=== PATIENT | male | born 1950 | race Caucasian/White ===

== ENCOUNTER 2023-09-05 08:05 | Inpatient (IN) | payer OTHER, SELFPAY ==
[2023-09-05] VITALS (24 sets, daily range): BP systolic 96–159; BP diastolic 51–85; PULSE 86–120; RESP 13–40; TEMP 35.9–36.8; O2SAT 92–98; BMI 29.0
--- NOTE | 2023-09-05 08:15 | ED.ABDPAIN ---
HPI - Abdominal Pain General Chief Complaint: Abdominal Pain Stated Complaint: Abd pain x 30 days Time Seen by Provider: 09/05/23 08:09 History of Present Illness HPI narrative: Patient is a 73-year-old male with history of atrial fibrillation but noncompliant with medications he reports he is supposed to be taking metoprolol and amiodarone but has not taken them since March of 2022. He has had ongoing abdominal pain for at least 1 month but worse over the last couple of days. He reports that he is dry heaving. He admits to drinking alcohol daily at least 3 drinks. He is under house arrest for what sounds like a DUI. He is reporting some increasing shortness of breath with exertion he denies any chest pain or palpitations. No specific now. No fevers chills or sweats. Related Data Allergies Allergy/AdvReac Type Severity Reaction Status Date / Time amiodarone Allergy Verified 09/05/23 10:25 metoprolol Allergy Verified 09/05/23 10:25 Patient History Social History household members: none Smoking Status: Current every day smoker Exam Initial Vital Signs Initial Vital Signs: Vital Signs Pulse Rate 112 H 09/05/23 08:10 Respiratory Rate 35 H 09/05/23 08:10 Pulse Oximetry 98 09/05/23 08:10 GENERAL: Disheveled awake alert 73-year-old male and in no acute distress. HEENT: Head atraumatic,EOMI, pupils reactive, face symmetric, moist mucous membranes CARDIOVASCULAR: Regular rate and rhythm without murmurs, rubs or gallops. RESPIRATORY: Breath sounds equal bilaterally, no wheezes rales or rhonchi. ABDOMEN: Soft, nontender. Normoactive bowel sounds all 4 quadrants. No guarding or rebound. : No CVA tenderness EXTREMITIES: Normal range of motion, no clubbing or edema. Neurovascularly intact NEUROLOGICAL: Alert and oriented x4 SKIN: Warm, dry, no laceration, no petechiae, no rashes or lesions. Course Orders Ordered: ED Orders 09/05/23 08:16 CT abdomen pelvis w con Stat XR chest 1V Stat EKG-12 Lead Stat 09/05/23 08:30 Complete Blood Count AUTO DIFF Stat Comprehensive Metabolic Panel Stat ETOH [Ethanol (ETOH)] Stat Lipase Stat NT-proBNP (BNP-Adult 18+) Stat PTT Partial Thromboplastin Shamir Stat Prothrombin Time INR Stat Troponin & CK Cardiac Panel Stat 09/05/23 10:50 Urine Drug Screen, Rapid Stat 09/05/23 11:08 Consult to DRAGLINE MECHANIC - Secondary School Teacher Stat 09/05/23 12:28 CEA [Carcinoembryonic Antigen] Stat Acetaminophen (Acetaminophen 325 Mg Tablet) 650 mg PO Q6H PRN PRN Reason: Fever/Mild Pain (1-3) Clonidine HCl (Clonidine 0.1 Mg Tablet) 0.1 mg PO Q4HR PRN PRN Reason: Alcohol Withdrawal Folic Acid (Folic Acid 1 Mg Tablet) 1 mg PO DAILY [facility] Heparin Sodium (Porcine) (Heparin 5,000 Unit/Ml Vial) 5,000 unit SUBCUT BID ENRIQUE Dextrose/Sodium Chloride (Dextrose 5%-0.9% Ns) 1,000 mls @ 100 mls/hr IV CONT ENRIQUE Lorazepam (Lorazepam 2 Mg/Ml Inj) 0 mg IV CIWAPRN PRN; Protocol PRN Reason: Alcohol Withdrawal Morphine Sulfate (Morphine 4 Mg/Ml Inj) 3 mg IV Q2HR [facility] Multivitamins (Multivitamin 1 Tablet) 1 tab PO DAILY [facility] Naloxone HCl (Naloxone 0.4 Mg/Ml Vial) 0.2 mg IV Q2MIN PRN PRN Reason: Opiate Reversal Nicotine (Nicotine 14 Patch) 14 mg TOP DAILY [facility] Ondansetron HCl (Ondansetron 4 Mg/2 Ml Inj) 4 mg IV Q8HR PRN PRN Reason: Nausea And Vomiting Oxycodone HCl (Oxycodone Ir 5 Mg Tablet) 5 mg PO Q3H PRN PRN Reason: Pain, Moderate (4-6) Oxycodone HCl (Oxycodone Ir 10 Mg Tablet) 10 mg PO Q3H PRN PRN Reason: Pain, Severe (7-10) Sennosides (Sennosides 8.6 Mg Tablet) 17.2 mg PO BEDTIME [facility] Thiamine HCl (Thiamine 100 Mg Tablet) 100 mg PO DAILY [facility] Stop: 09/09/23 09:01 Discontinued Medications Aspirin (Aspirin 81 Mg Chew Tab) 324 mg PO NOW ONE Stop: 09/05/23 08:17 Last Admin: 09/05/23 08:21 Dose: 324 mg Documented By: MPO Furosemide (Furosemide 40 Mg/4 Ml Vial) 20 mg IV NOW ONE Stop: 09/05/23 10:07 Last Admin: 09/05/23 10:25 Dose: 20 mg Documented By: AB Thiamine HCl 100 mg/ Sodium (Chloride) 101 mls @ 404 mls/hr IV NOW ONE Stop: 09/05/23 13:36 Last Admin: 09/05/23 14:35 Dose: 404 mls/hr Documented By: BRIAN Ondansetron HCl (Ondansetron 4 Mg/2 Ml Inj) 4 mg IV NOW ONE Stop: 09/05/23 10:48 Last Admin: 09/05/23 10:51 Dose: 4 mg Documented By: Phenobarbital (Phenobarbital 65 Mg/Ml Vial) 130 mg IV NOW ONE Stop: 09/05/23 12:53 Last Admin: 09/05/23 13:03 Dose: 130 mg Documented By: Vital Signs Vital signs: Vital Signs - 8 hr 09/05/23 08:10 09/05/23 08:12 09/05/23 08:12 Temperature Pulse Rate 112 H 102 H Respiratory Rate 35 H 26 H Blood Pressure 159/80 H Pulse Oximetry 98 97 Oxygen Delivery Method 09/05/23 08:14 09/05/23 08:30 09/05/23 09:00 Temperature 98.3 F Pulse Rate 120 H 109 H 98 H Respiratory Rate 18 22 26 H Blood Pressure 159/80 H Pulse Oximetry 98 97 95 Oxygen Delivery Method Room Air Room Air 09/05/23 09:25 09/05/23 09:25 09/05/23 09:30 Temperature Pulse Rate 95 H Respiratory Rate 20 Blood Pressure 100/69 96/51 L Pulse Oximetry 97 Oxygen Delivery Method 09/05/23 09:30 09/05/23 09:41 09/05/23 09:41 Temperature Pulse Rate 95 H 104 H Respiratory Rate 24 40 H Blood Pressure 109/55 L Pulse Oximetry 95 95 Oxygen Delivery Method 09/05/23 10:00 09/05/23 10:00 09/05/23 10:30 Temperature Pulse Rate 98 H Respiratory Rate 28 H Blood Pressure 111/60 107/69 Pulse Oximetry 95 Oxygen Delivery Method 09/05/23 10:30 09/05/23 11:00 09/05/23 11:00 Temperature Pulse Rate 94 H 100 H Respiratory Rate 29 H 13 Blood Pressure 99/53 L Pulse Oximetry 97 95 Oxygen Delivery Method 09/05/23 11:04 09/05/23 11:04 09/05/23 11:30 Temperature Pulse Rate 102 H 110 H Respiratory Rate 31 H 39 H Blood Pressure 131/77 Pulse Oximetry 97 96 Oxygen Delivery Method 09/05/23 11:31 09/05/23 11:31 09/05/23 12:00 Temperature Pulse Rate 112 H Respiratory Rate 36 H Blood Pressure 131/68 137/85 Pulse Oximetry 96 Oxygen Delivery Method 09/05/23 12:00 09/05/23 12:33 09/05/23 12:41 Temperature Pulse Rate 112 H 116 H Respiratory Rate 31 H 24 Blood Pressure Pulse Oximetry 92 97 Oxygen Delivery Method 09/05/23 12:58 09/05/23 12:58 09/05/23 13:00 Temperature Pulse Rate 117 H Respiratory Rate 25 H Blood Pressure 124/67 123/65 Pulse Oximetry 97 Oxygen Delivery Method 09/05/23 13:00 09/05/23 13:30 09/05/23 13:30 Temperature Pulse Rate 113 H 108 H Respiratory Rate 19 19 Blood Pressure 115/60 Pulse Oximetry 96 95 Oxygen Delivery Method MDM - Abdominal Pain Lab Data 09/05/23 08:30 09/05/23 08:30 Labs: Lab Results 09/05/23 09/05/23 09/05/23 Range/Units 08:30 10:50 12:28 WBC 12.6 H (4.5-11.0) X10^3/uL RBC 4.73 (4.5-5.9) X10^6/uL Hgb 10.0 L (13.5-17.5) g/dL Hct 33.7 L (41-53) % MCV 71.1 L (80-100) fL MCH 21.2 L (26-34) PG MCHC 29.8 L (30-36) % RDW 21.0 H (11.6-14.8) % Plt Count 438 H (150-400) X10^3/uL Neut % (Auto) 71.9 (50-75) % Lymph % (Auto) 16.5 L (25-40) % [place] % (Auto) 8.9 (3-14) % Eos % (Auto) 1.8 L (2-4) % Baso % (Auto) 0.9 (0-2) % Neut # (Auto) 9100 H (1727-7594) /uL Lymph # (Auto) 2100 (2323-0962) /uL [place] # (Auto) 1100 H (0-900) /uL Eos # (Auto) 200 (0-450) /uL Baso # (Auto) 100 (0-100) /uL RBC Morphology See below Hypochromasia 1+ H Anisocytosis 2+ H Microcytosis 1+ H PT 12.4 (9.4-12.5) SECONDS INR 1.1 (0.9-1.3) APTT 28 (25.1-36.5) SECONDS Sodium 135 L (137-145) mmol/L Potassium 4.2 (3.4-5.1) mmol/L Chloride 101 (98-107) mmol/L Carbon Dioxide 21 L (22-32) mmol/L BUN 17 (9-20) mg/dL Creatinine 1.66 H (0.66-1.25) mg/dL Estimated GFR 44 L (>60) mL/min BUN/Creatinine Ratio 10.2 (6-22) Glucose 114 H (80-110) mg/dL Calcium 8.9 (8.4-10.2) mg/dL Total Bilirubin 0.6 (0.2-1.3) mg/dL AST 42 (17-59) IU/L ALT 31 (<50) IU/L Alkaline Phosphatase 111 (38-126) U/L Total Creatine Kinase 107 (55-170) U/L Troponin I 0.014 (0.01-0.034) ng/mL NT-Pro-B Natriuret Pep 1090 H (<125) pg/mL Total Protein 7.0 (6.3-8.2) g/dL Albumin 3.8 (3.5-5.0) g/dL Globulin 3.2 (1.7-4.1) g/dL Albumin/Globulin Ratio 1.2 (1.0-2.8) Lipase 98 (23-300) U/L Carcinoembryonic Ag 35.5 H (0.1-3.0) ng/mL U Opiates 300ng/mL cut Negative (Negative) Ur Oxycodone Screen Negative (Negative) Urine Methadone Screen Negative (Negative) Ur Barbiturates Screen Negative (Negative) U Tricyclic Antidepress Negative (Negative) Ur Phencyclidine Scrn Negative (Negative) Ur Amphetamines Screen Negative (Negative) U Methamphetamines Scrn Positive H (Negative) Ur MDMA Scrn (Ecstasy) Negative (Negative) U Benzodiazepines Scrn Negative (Negative) Urine Cocaine Screen Negative (Negative) U Marijuana (THC) Screen Positive H (Negative) Urine pH Normal (Normal) Urine Specific [place] Normal (Normal) Ethyl Alcohol 54 H ( - 10) mg/dL Ur Creatinine Normal (Normal) Imaging Data CT scan - abdomen/pelvis: Radiologist's Impression: PROCEDURE: CT ABDOMEN PELVIS W CON INDICATIONS: ab pain TECHNIQUE: After the administration of intravenous contrast, axial sections acquired from the lung bases to the pubic symphysis. Coronal and sagittal reformats were performed. For radiation dose reduction, the following was used: automated exposure control, adjustment of mA and/or kV according to patient size. COMPARISON: None. FINDINGS: Image quality: Diagnostic. Lower Chest: Calcification of the coronary vasculature. Small pericardial effusion. ABDOMEN: Liver: No solid mass. Gallbladder: Surgically absent Biliary ducts: No biliary dilation. Pancreas: No ductal dilation. Spleen: Size is within normal limits. Adrenal Glands: No adrenal nodules. Kidneys and Ureters: No hydronephrosis. No solid mass. No complex renal cystic lesion which requires follow up. Stomach and Bowel: Stomach and small bowel are within normal limits. Appendix is normal. There is severe thickening of the mid and distal ascending colon which demonstrates moderate surrounding fat stranding. Remainder of colon is within normal limits. Peritoneum: No abnormal intraperitoneal fluid. No free air. Ventral Wall: No hernia. Abdominal Nodes: 11 mm short axis lymph node within the right superior pelvis. Mildly prominent pericolonic subcentimeter lymph nodes within the right hemiabdomen. Vessels: There is mild ectasia of the infrarenal abdominal aorta measuring roughly 30 mm diameter. IVC is within normal limits. PELVIS: Pelvic Organs: Unremarkable. Bladder: Unremarkable. Pelvic Nodes: No enlarged lymph nodes. Miscellaneous: No inguinal hernias are seen. Bones: No aggressive osseous abnormality. IMPRESSION: 1. 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 Infection inflammation could produce a similar appearance. Further assessment with colonoscopy is recommended. 2. Coronary artery disease. 3. Small pericardial effusion. 4. Aortic ectasia. Dictated by: Patricia Gomez M.D. on 09/05/2023 at 9:26 ECG Data Interpretation: Sinus rhythm rate 114 MA interval 144 QRS 80 QTC 512 MDM Narrative Medical decision making narrative: Patient is 73-year-old male history of noncompliance atrial fibrillation with ongoing abdominal and alcohol abuse. Presenting today by EMS with ongoing abdominal pain. Reports dry heaving unable to drink as much alcohol normal but does not appear to be in acute withdrawal. Blood work reviewed: WBC 12.6 hemoglobin 10.0 hematocrit 33 0.7 MVC 71, platelets 438, sodium 135, potassium 4.2, chloride 101, CO2 21, BUN 17, creatinine 1.6, glucose 114, bilirubin 0.6 AST 42, ALT 1 alk-phos 111 troponin 0.014, BNP 1090 lipase 98 Imaging: CT shows inflammatory carcinoma involving right colon with metastasis recommended colonoscopy, coronary artery disease and small pericardial effusion along with aortic ectasia. Chest x-ray did not show any abnormality Patient overall appears well. He does have some shortness of breath possibly some CHF with an elevated BNP without significant hypoxia or fluid overload. He is given Lasix here in the ED. Records from [facility] have been received and reviewed last visit there was in January of 2022 at that time he was also known to be noncompliant with medications Many [facility] talk [facility] the [facility]. Finally gotten touch with the ED and [facility] they report that he has no primary care provider in his not established there either. Patient is notably having increased heart rate some confusion nursing reports increase in see while. Patient is adamant he does not drink a lot of alcohol although his alcohol level today was 54. He reports that he does drink sometimes to help the shakes in the itching go away. Blood work early consistent with chronic alcohol use but is certainly having some concerns with withdrawal. He likely has some congestive heart failure as well. However he reports he has not eating or drinking maybe dehydrated. Patient has newly diagnosed colon cancer but he reports he does not want any sort of treatment for it. Patient has no evidence of infection With increasing shakiness tachycardia tone confusion increase CIWA concern for alcohol withdrawal. Dr. Landa updated patient's symptoms test results and kindly accepts patient Discharge Plan Departure Patient Disposition: Admitted As Inpatient Clinical Impression: Alcohol use with withdrawal, CHF (congestive heart failure), Colon cancer, Methamphetamine abuse Admit Date/Time: 09/05/23 13:35 Admit Provider: Blaise Landa
--- NOTE | 2023-09-05 08:16 | DI.RAD.S_ITS ---
PROCEDURE: XR CHEST 1V INDICATIONS: short of breath TECHNIQUE: One view of the chest was acquired. COMPARISON: [facility], CR, XR CHEST 1 VIEW, 04/25/2019, 23:20. FINDINGS: Surgical changes and devices: None. Lungs and pleura: Lungs are clear. No pleural effusions or pneumothorax. Mediastinum: Mediastinal contours appear normal. Heart size is normal. Bones and chest wall: No suspicious bony lesions. Overlying soft tissues appear unremarkable. IMPRESSION: No acute cardiopulmonary abnormality is seen. Dictated by: Edson Mosquera M.D. on 09/05/2023 at 8:49 Approved by: Edson Mosquera M.D. on 09/05/2023 at 8:52
[2023-09-05] MEDS: ASPIRIN 81 MG CHEW TAB 324 MG PO (08:21)
[2023-09-05 08:55] LABS: Add Manual Diff / Slide Review NO; Basophils Absolute Auto 100 /uL (0-100); Basophils Percent Auto 0.9 % (0-2); Eosinophils Absolute Auto 200 /uL (0-450); Eosinophils Percent Auto 1.8 % (2-4); Hematocrit 33.7 % (41-53); Lymphocytes Absolute Auto 2100 /uL (1100-4500); Lymphocytes Percent Auto 16.5 % (25-40); Mean Corpuscular HGB Conc 29.8 % (30-36); Mean Corpuscular Hemoglobin 21.2 PG (26-34); Mean Corpuscular Volume 71.1 fL (80-100); Monocytes Absolute Auto 1100 /uL (0-900); Monocytes Percent Auto 8.9 % (3-14); Neutrophils Absolute Auto 9100 /uL (1500-7000); Neutrophils Percent Auto 71.9 % (50-75); Platelet Count 438 X10^3/uL (150-400); Red Blood Cell Count 4.73 X10^6/uL (4.5-5.9); White Blood Cell Count 12.6 X10^3/uL (4.5-11.0)
[2023-09-05 08:57] LABS: INR 1.1 (0.9-1.3); Prothrombin Time 12.4 SECONDS (9.4-12.5)
[2023-09-05 09:00] LABS: PTT Partial Thromboplastin Tim 28 SECONDS (25.1-36.5)
[2023-09-05 09:02] LABS: Alanine Aminotransferase 31 IU/L (<50); Albumin 3.8 g/dL (3.5-5.0); Albumin Globulin Ratio 1.2 (1.0-2.8); Alkaline Phosphatase 111 U/L (38-126); Aspartate Aminotransferase 42 IU/L (17-59); BUN Creatinine Ratio 10.2 (6-22); Bilirubin Total 0.6 mg/dL (0.2-1.3); Blood Urea Nitrogen 17 mg/dL (9-20); Calcium 8.9 mg/dL (8.4-10.2); Carbon Dioxide 21 mmol/L (22-32); Chloride 101 mmol/L (98-107); Creatine Kinase 107 U/L (55-170); Estimated Glomerular Filt Rate 44 mL/min (>60); Globulin 3.2 g/dL (1.7-4.1); Glucose 114 mg/dL (80-110); Lipase 98 U/L (23-300); Potassium 4.2 mmol/L (3.4-5.1); Sodium 135 mmol/L (137-145)
[2023-09-05 09:13] LABS: HEMOLYSIS < 15 (0-50); NT-proBNP (BNP-Adult 18+) 1090 pg/mL (<125)
[2023-09-05 09:14] LABS: Troponin I 0.014 ng/mL (0.01-0.034)
[2023-09-05 09:33] LABS: Anisocytosis 2+; Hypochromasia 1+; Microcytosis 1+
[2023-09-05 10:04] LABS: Ethanol (ETOH) 54 mg/dL
[2023-09-05] MEDS: FUROSEMIDE 40 MG/4 ML VIAL 20 MG IV (10:25)
[2023-09-05] MEDS: ONDANSETRON 4 MG/2 ML INJ IV (10:51)
[2023-09-05 11:15] LABS: UR Morphine/Opiate cutoff 300 Negative (Negative); Ur Creatinine Normal (Normal); Ur Specific Gravity Normal (Normal); Urine Amphetamines Negative (Negative); Urine Barbiturates Negative (Negative); Urine Benzodiazepines Negative (Negative); Urine Cocaine Negative (Negative); Urine MDMA Negative (Negative); Urine Methadone Negative (Negative); Urine Methamphetamines Positive (Negative); Urine Oxycodone Negative (Negative); Urine Phencyclidine Negative (Negative); Urine Tetrahydrocannabinol Positive (Negative); Urine Tricyclic Antidepressant Negative (Negative); Urine pH Normal (Normal)
--- NOTE | 2023-09-05 11:33 | PC.NURSE ---
Pt asking for food and water. Per Dr Parish- verbal order for general diet. given ice water and sandwich.
[2023-09-05] MEDS: PHENobarbital 65 MG/ML VIAL 130 MG IV (13:03)
[2023-09-05 13:07] LABS: Carcinoembryonic Antigen 35.5 ng/mL (0.1-3.0)
--- NOTE | 2023-09-05 13:39 | CM.SWNOTE ---
Initial DCP Assessment/ ED CATERPILLAR TRACTOR OPERATOR Note Patient is 73 y/o male who presents to ED via EMS from [place] due to concern for Afib, SOB, Abd pain and recent ETOH use. It is reported that patient has not been taking rx for the last 1.5 years due to issues with access to [facility] benefits. Patient does not have current PCP, this CATERPILLAR TRACTOR OPERATOR contacted the VA to set that up. Patient has VA and [employer] insurance. CATERPILLAR TRACTOR OPERATOR enters room to meet with patient, patient presents as A/Ox4, unkempt and coherent. Patient endorses he resides on [place] and moved there 5 years ago, patient endorses independence with ADLs, patient states he has a vehicle and drives. Patient endorses access to basic needs. Patient endorses he receives VA benefits because he is a 100% disabled vet. Patient endorses difficulty navigating the [facility] in receiving outpatient care and follow up with prescriptions in the last 1-2 years. Patient endorses ETOH use but denies issue with drinking, it is reported that patient has at least 3 drinks daily. Patient presents with BAL of 54, also positive for THC and Methamphetamine. Patient presents to ED with ankle bracelet electronic monitor and states that he recently got a DUI. Patient is currently experiencing ETOH withdrawals with shakey, SOB, sweats, Nausea and pain. Per RN, patient presents with current CIWA score of 21 Patient states he has several siblings throughout [facility] and one of his sisters visited him a week or so ago. Patient does not have any contacts listed in EMR. Upon presentation to ED patient's CT scans show lois metastases of the right colon, CAD. small Pericardial effusion and aortic ectasia. Patient endorses he is not interested in pursuing chemotherapy but agrees he needs to establish care with a PCP. CATERPILLAR TRACTOR OPERATOR reaches out to [facility] regarding patient, he provides contacts to [place]. CATERPILLAR TRACTOR OPERATOR offers assistance in establishing care with PCP, CATERPILLAR TRACTOR OPERATOR makes several attempts to reach [facility] and eventually reaches [place] through (Ph. # [phone]), it is reported that their team will reach out to patient to set up PCP appt, CATERPILLAR TRACTOR OPERATOR provides ED CATERPILLAR TRACTOR OPERATOR phone number as well for further coordination of care in the case that patient's phone is not in service. CATERPILLAR TRACTOR OPERATOR also calls [place] [facility]ist Cyndy Haywood (ph. # [phone]) and leaves requesting return call regarding patient. Cyndy calls back and states that patient needs to fill out a 10-10 EZ form for VA enrollment to set up with further VA services and to establish care with PCP. CATERPILLAR TRACTOR OPERATOR to provide this with patient. Patient is able to ambulate independently in ED but presents with SOB and pain afterwards. ED provider contacts hospitalist and patient is accepted for for acute care inpatient status due to concern for patient's ETOH withdrawals, and further evaluation and treatment regarding patient's new dx. Plan: patient admitted to Acute Care, DCP to f/u with POC and f/u with [facility] for coordination of care. Patient likely to d/c to home upon medical clearance but will need support with outpatient follow up. ANGEL Nielson Discharge Planning/Care Management CM Discharge Assessment Start: 09/05/23 13:37 Freq: Status: Active Protocol: Document 09/05/23 13:37 LN (Rec: 09/05/23 13:39 LN [id number]) Discharge Planning Assessment Assigned Bed Spring Maker ANGEL Estes Advance Directives? No Advance Directives on File No History Provided By Patient,Medical Record Has Patient been admitted in last 30 No days? Prior Living Arrangements House Household Members none Type of transporation used prior to Drives own vehicle admit Independent with ADL's Yes Is patient alert and oriented? Yes Comment Patient will need assistance with PCP follow up with [facility]. This CATERPILLAR TRACTOR OPERATOR called VA and requested established care with PCP it is reported they will call back patient or this CATERPILLAR TRACTOR OPERATOR. Review Status In Process Please Provide Date Initial DC 09/05/23 Assessment Was Performed
[2023-09-05] MEDS: THIAMINE 100 MG in SODIUM CHLORIDE 0.9% 100 ML 404 MG IV (14:35)
--- NOTE | 2023-09-05 15:12 | P.HP_ITS ---
History of Present Illness History of Present Illness Date Patient Seen: 09/05/23 Time Patient Seen: 15:14 Date of Onset of Symptoms: 08/14/23 Chief complaint: Abd pain x 30 days Narrative: The patient is a 73-year-old male with a history of atrial fibrillation, medication noncompliance, and alcohol use disorder who presents from [place] by medical transport boat for profound weakness. The patient describes of crescendo abdominal pain for the last 4-6 weeks. He has been treating this intermittently with alcohol at home, sometimes drinking a half of a 5th of alcohol a day. He has [place] staying [place] very [place] on [place] and today called for help because he was unable to tolerate the pain and weakness. He does note some dyspnea with exertion. The patient has a left ankle brace on for some type of driving charges. The patient has multiple siblings who live somewhat close and a brother in [place]. The patient was found to have evidence of metastatic cancer of unknown primary with scanning in the emergency department today and took that news with calmness noting that he has done his time. He began to develop symptoms of alcohol withdrawal scoring CIWA scores of 22 in the emergency department. He was given Ativan and phenobarbital. He arrives on the floor with mild diaphoresis but denies any withdrawal symptoms or hallucinations. He has not shaking. His pain has primarily been epigastric. He has had periodic diarrhea. He notes he has no interest in further evaluation for cancer or treatment modalities but rather he would like to be comfortable and preserve his dignity. 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 Skin exam reveals mckinney on the medial aspect of both lower extremities which he notes he sustained by sitting too close to a portable propane here which he uses in his cabin. [facility] Social History household members: none Smoking Status: Current every day smoker Meds Home Medications and Allergies Allergies Allergy/AdvReac Type Severity Reaction Status Date / Time amiodarone Allergy Verified 09/05/23 10:25 metoprolol Allergy Verified 09/05/23 10:25 Review of Systems Review of Systems Narrative: All else reviewed and otherwise unremarkable except as noted in the history and physical. Exam Vital Signs (past 8 hours): - 09/05/23 08:10 09/05/23 08:12 09/05/23 08:12 Temperature Pulse Rate 112 H 102 H Respiratory Rate 35 H 26 H Blood Pressure 159/80 H Pulse Oximetry 98 97 Oxygen Delivery Method 09/05/23 08:14 09/05/23 08:30 09/05/23 09:00 Temperature 98.3 F Pulse Rate 120 H 109 H 98 H Respiratory Rate 18 22 26 H Blood Pressure 159/80 H Pulse Oximetry 98 97 95 Oxygen Delivery Method Room Air Room Air 09/05/23 09:25 09/05/23 09:25 09/05/23 09:30 Temperature Pulse Rate 95 H Respiratory Rate 20 Blood Pressure 100/69 96/51 L Pulse Oximetry 97 Oxygen Delivery Method 09/05/23 09:30 09/05/23 09:41 09/05/23 09:41 Temperature Pulse Rate 95 H 104 H Respiratory Rate 24 40 H Blood Pressure 109/55 L Pulse Oximetry 95 95 Oxygen Delivery Method 09/05/23 10:00 09/05/23 10:00 09/05/23 10:30 Temperature Pulse Rate 98 H Respiratory Rate 28 H Blood Pressure 111/60 107/69 Pulse Oximetry 95 Oxygen Delivery Method 09/05/23 10:30 09/05/23 11:00 09/05/23 11:00 Temperature Pulse Rate 94 H 100 H Respiratory Rate 29 H 13 Blood Pressure 99/53 L Pulse Oximetry 97 95 Oxygen Delivery Method 09/05/23 11:04 09/05/23 11:04 09/05/23 11:30 Temperature Pulse Rate 102 H 110 H Respiratory Rate 31 H 39 H Blood Pressure 131/77 Pulse Oximetry 97 96 Oxygen Delivery Method 09/05/23 11:31 09/05/23 11:31 09/05/23 12:00 Temperature Pulse Rate 112 H Respiratory Rate 36 H Blood Pressure 131/68 137/85 Pulse Oximetry 96 Oxygen Delivery Method 09/05/23 12:00 09/05/23 12:33 09/05/23 12:41 Temperature Pulse Rate 112 H 116 H Respiratory Rate 31 H 24 Blood Pressure Pulse Oximetry 92 97 Oxygen Delivery Method 09/05/23 12:58 09/05/23 12:58 09/05/23 13:00 Temperature Pulse Rate 117 H Respiratory Rate 25 H Blood Pressure 124/67 123/65 Pulse Oximetry 97 Oxygen Delivery Method 09/05/23 13:00 09/05/23 13:30 09/05/23 13:30 Temperature Pulse Rate 113 H 108 H Respiratory Rate 19 19 Blood Pressure 115/60 Pulse Oximetry 96 95 Oxygen Delivery Method 09/05/23 14:00 09/05/23 14:00 Temperature Pulse Rate 105 H Respiratory Rate 20 Blood Pressure 113/65 Pulse Oximetry 94 Oxygen Delivery Method Oxygen Delivery Method Room Air Narrative Exam Narrative: NAD, alert and oriented x3, fluent speech. Somewhat disheveled in appearance. Obese. Head is atraumatic, pupils are symmetric, anicteric sclera, EOMI, conjugate gaze. Nose and oropharynx unremarkable. No facial droop. He has a moon. Neck is supple and free of adenopathy. Lungs are clear, normal rate and effort. Heart is regular, no murmur Abdomen soft , NT. No masses. No leg edema. Good pedal pulses. Superficial mckinney medical aspects of both lower legs Normal joints Moves arms and legs. No slurring. Objective ECG Impression: Interpretation: Sinus rhythm rate 114 MI interval 144 QRS 80 QTC 512 Imaging Chest x-ray: Radiologist's impression: IMPRESSION: No acute cardiopulmonary abnormality is seen. CT scan - abdomen: Radiologist's impression: IMPRESSION: 1. 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 Infection inflammation could produce a similar appearance. Further assessment with colonoscopy is recommended. 2. Coronary artery disease. 3. Small pericardial effusion. 4. Aortic ectasia. Labs 09/05/23 08:30 09/05/23 08:30 Labs: Laboratory Results - last 24 hr 09/05/23 09/05/23 09/05/23 08:30 10:50 12:28 WBC 12.6 H RBC 4.73 Hgb 10.0 L Hct 33.7 L MCV 71.1 L MCH 21.2 L MCHC 29.8 L RDW 21.0 H Plt Count 438 H Neut % (Auto) 71.9 Lymph % (Auto) 16.5 L [place] % (Auto) 8.9 Eos % (Auto) 1.8 L Baso % (Auto) 0.9 Neut # (Auto) 9100 H Lymph # (Auto) 2100 [place] # (Auto) 1100 H Eos # (Auto) 200 Baso # (Auto) 100 RBC Morphology See below Hypochromasia 1+ H Anisocytosis 2+ H Microcytosis 1+ H PT 12.4 INR 1.1 APTT 28 Sodium 135 L Potassium 4.2 Chloride 101 Carbon Dioxide 21 L BUN 17 Creatinine 1.66 H Estimated GFR 44 L BUN/Creatinine Ratio 10.2 Glucose 114 H Calcium 8.9 Total Bilirubin 0.6 AST 42 ALT 31 Alkaline Phosphatase 111 Total Creatine Kinase 107 Troponin I 0.014 NT-Pro-B Natriuret Pep 1090 H Total Protein 7.0 Albumin 3.8 Globulin 3.2 Albumin/Globulin Ratio 1.2 Lipase 98 Carcinoembryonic Ag 35.5 H U Opiates 300ng/mL cut Negative Ur Oxycodone Screen Negative Urine Methadone Screen Negative Ur Barbiturates Screen Negative U Tricyclic Antidepress Negative Ur Phencyclidine Scrn Negative Ur Amphetamines Screen Negative U Methamphetamines Scrn Positive H Ur MDMA Scrn (Ecstasy) Negative U Benzodiazepines Scrn Negative Urine Cocaine Screen Negative U Marijuana (THC) Screen Positive H Urine pH Normal Urine Specific [place] Normal Ethyl Alcohol 54 H Ur Creatinine Normal Assessment & Plan Assessment & Plan narrative: 1. Alcohol withdrawal, new and active. 2. Probable metastatic colon cancer, present on admission and active. Plan: -IV fluids -pain medications as needed -CIWA protocol, we will introduce a Librium taper within the next day. -discharge planning which may include hospice at an institution. DNR Time Spent With Patient Time with patient: 30 to 49 minutes with 50% spent counseling/coordinating care Quality MIPS - Admit I confirm the patient?s Advance Care Plan is present, Code status is documented, Surrogate decision maker is in patient?s record [If Yes, STOP here]: Yes
[2023-09-05] MEDS: MORPHINE 4 MG/ML INJ 3 MG IV (15:42)
[2023-09-05] MEDS: DEXTROSE 5%-0.9% NS 1,000 ML 100 ML IV (15:46)
[2023-09-05] MEDS: cloNIDine 0.1 MG TABLET PO (18:08)
[2023-09-05] MEDS: LORazepam 2 MG/ML INJ IV (18:16)
[2023-09-05] MEDS: SENNOSIDES 8.6 MG TABLET 17.2 MG PO (21:24)
[2023-09-05] MEDS: HEPARIN 5,000 UNIT/ML VIAL 5000 UNIT SUBCUT (21:24)
[2023-09-06 00:14] VITALS: BP 102/54; PULSE 70; RESP 18; TEMP 36.4; O2SAT 96
[2023-09-06] MEDS: LORazepam 2 MG/ML INJ IV (01:16)
[2023-09-06] MEDS: DEXTROSE 5%-0.9% NS 1,000 ML 100 ML IV (02:13)
[2023-09-06 04:59] VITALS: BP 134/76; PULSE 96; RESP 16; TEMP 36.6; O2SAT 95
[2023-09-06 05:05] LABS: Add Manual Diff / Slide Review NO; Basophils Absolute Auto 100 /uL (0-100); Basophils Percent Auto 0.6 % (0-2); Eosinophils Absolute Auto 500 /uL (0-450); HEMOLYSIS < 15 (0-50); Hematocrit 29.1 % (41-53); Hemoglobin 8.9 g/dL (13.5-17.5); Lymphocytes Absolute Auto 1700 /uL (1100-4500); Lymphocytes Percent Auto 15.8 % (25-40); Mean Corpuscular HGB Conc 30.6 % (30-36); Mean Corpuscular Hemoglobin 21.8 PG (26-34); Mean Corpuscular Volume 71.1 fL (80-100); Monocytes Absolute Auto 800 /uL (0-900); Monocytes Percent Auto 7.2 % (3-14); Neutrophils Absolute Auto 7700 /uL (1500-7000); Neutrophils Percent Auto 71.4 % (50-75); Platelet Count 355 X10^3/uL (150-400); Red Cell Distribution Width 20.5 % (11.6-14.8); Sodium 132 mmol/L (137-145); White Blood Cell Count 10.7 X10^3/uL (4.5-11.0)
[2023-09-06 05:08] LABS: Alanine Aminotransferase 25 IU/L (<50); Alkaline Phosphatase 99 U/L (38-126); Aspartate Aminotransferase 27 IU/L (17-59); BUN Creatinine Ratio 16.3 (6-22); Bilirubin Total 0.7 mg/dL (0.2-1.3); Blood Urea Nitrogen 20 mg/dL (9-20); Carbon Dioxide 23 mmol/L (22-32); Chloride 103 mmol/L (98-107); Estimated Glomerular Filt Rate > 60 mL/min (>60); Globulin 2.9 g/dL (1.7-4.1); Glucose 111 mg/dL (80-110); Total Protein 5.9 g/dL (6.3-8.2)
[2023-09-06 05:36] LABS: Anisocytosis 2+; Hypochromasia 1+; Microcytosis 1+; Polychromasia 1+
--- NOTE | 2023-09-06 06:45 | PC.NURSE ---
Last CIWA assessment was done @ 0107, medicated him with 1 mg. of Lorazepam IVP. Every time I checked him, he's snoring lightly. Will monitor & cont. POC.
[2023-09-06 08:00] VITALS: BP 134/75; PULSE 83; RESP 18; TEMP 36.4; O2SAT 96
--- NOTE | 2023-09-06 08:57 | P.PN_ITS ---
Subjective Subjective Interval history: Doing well, no dyspnea. He denies any hallucinations,agitation or anxiety. No nausea. He confirms DNR. He also confirms a desire to continue to reside on [place]. He has no interest in further workup of his cancer or potential treatment. Exam Vital Signs (past 8 hours): - 09/06/23 04:59 09/06/23 08:00 Temperature 97.9 F 97.6 F Pulse Rate 96 H 83 Respiratory Rate 16 18 Blood Pressure 134/76 134/75 Pulse Oximetry 95 96 Oxygen Flow Rate 0 Oxygen Delivery Method Room Air Oxygen Flow Rate 0 Narrative Exam Narrative: NAD, fluent speech. Normal affect. Lungs are clear, normal rate and effort. Heart is regular, no murmur. Abdomen is soft, nontender. Extremities are free of edema. Poor hygiene regarding feet. Superficial [place] medial aspects of both lower extremities. Objective Labs 09/06/23 04:20 09/06/23 04:20 Labs: Laboratory Results - last 24 hr 09/05/23 09/05/23 09/05/23 08:30 10:50 12:28 WBC 12.6 H RBC 4.73 Hgb 10.0 L Hct 33.7 L MCV 71.1 L MCH 21.2 L MCHC 29.8 L RDW 21.0 H Plt Count 438 H Neut % (Auto) 71.9 Lymph % (Auto) 16.5 L [place] % (Auto) 8.9 Eos % (Auto) 1.8 L Baso % (Auto) 0.9 Neut # (Auto) 9100 H Lymph # (Auto) 2100 [place] # (Auto) 1100 H Eos # (Auto) 200 Baso # (Auto) 100 RBC Morphology See below Polychromasia Hypochromasia 1+ H Anisocytosis 2+ H Microcytosis 1+ H PT 12.4 INR 1.1 APTT 28 Sodium 135 L Potassium 4.2 Chloride 101 Carbon Dioxide 21 L BUN 17 Creatinine 1.66 H Estimated GFR 44 L BUN/Creatinine Ratio 10.2 Glucose 114 H Calcium 8.9 Total Bilirubin 0.6 AST 42 ALT 31 Alkaline Phosphatase 111 Total Creatine Kinase 107 Troponin I 0.014 NT-Pro-B Natriuret Pep 1090 H Total Protein 7.0 Albumin 3.8 Globulin 3.2 Albumin/Globulin Ratio 1.2 Lipase 98 Carcinoembryonic Ag 35.5 H U Opiates 300ng/mL cut Negative Ur Oxycodone Screen Negative Urine Methadone Screen Negative Ur Barbiturates Screen Negative U Tricyclic Antidepress Negative Ur Phencyclidine Scrn Negative Ur Amphetamines Screen Negative U Methamphetamines Scrn Positive H Ur MDMA Scrn (Ecstasy) Negative U Benzodiazepines Scrn Negative Urine Cocaine Screen Negative U Marijuana (THC) Screen Positive H Urine pH Normal Urine Specific [place] Normal Ethyl Alcohol 54 H Ur Creatinine Normal 09/06/23 04:20 WBC 10.7 RBC 4.10 L Hgb 8.9 L Hct 29.1 L MCV 71.1 L MCH 21.8 L MCHC 30.6 RDW 20.5 H Plt Count 355 Neut % (Auto) 71.4 Lymph % (Auto) 15.8 L [place] % (Auto) 7.2 Eos % (Auto) 5.0 H Baso % (Auto) 0.6 Neut # (Auto) 7700 H Lymph # (Auto) 1700 [place] # (Auto) 800 Eos # (Auto) 500 H Baso # (Auto) 100 RBC Morphology See below Polychromasia 1+ H Hypochromasia 1+ H Anisocytosis 2+ H Microcytosis 1+ H PT INR APTT Sodium 132 L Potassium 4.0 Chloride 103 Carbon Dioxide 23 BUN 20 Creatinine 1.23 Estimated GFR > 60 BUN/Creatinine Ratio 16.3 Glucose 111 H Calcium 8.0 L Total Bilirubin 0.7 AST 27 ALT 25 Alkaline Phosphatase 99 Total Creatine Kinase Troponin I NT-Pro-B Natriuret Pep Total Protein 5.9 L Albumin 3.0 L Globulin 2.9 Albumin/Globulin Ratio 1.0 Lipase Carcinoembryonic Ag U Opiates 300ng/mL cut Ur Oxycodone Screen Urine Methadone Screen Ur Barbiturates Screen U Tricyclic Antidepress Ur Phencyclidine Scrn Ur Amphetamines Screen U Methamphetamines Scrn Ur MDMA Scrn (Ecstasy) U Benzodiazepines Scrn Urine Cocaine Screen U Marijuana (THC) Screen Urine pH Urine Specific [place] Ethyl Alcohol Ur Creatinine PFSH Social History household members: none Smoking Status: Current every day smoker alcohol intake: current Assessment & Plan Assessment & Plan narrative: 1. Alcohol withdrawal, new and improved. 2. Probable metastatic colon cancer, present on admission and active. 3. Mild anemia, present on admission and active. 4. Mild hyponatremia, present on admission and active. 5. Superficial mckinney medial aspect of both legs, present on admission and active. Plan: -discontinue IV fluids -discussed with social work, [facility] will [facility] and look at options for discharge potentially with hospice and other support. -discontinue CIWA protocol, and start Librium taper with p.o. q.6 hours PRN Ativan for anxiety. -discharge planning which may include hospice at an institution. -out of bed, physical therapy evaluation. DNR Quality VTE Deep Vein Thrombosis/Pulmonary Embolism Present on Admission: Yes
[2023-09-06] MEDS: THIAMINE 100 MG TABLET PO (09:00)
[2023-09-06] MEDS: FOLIC ACID 1 MG TABLET PO (09:00)
[2023-09-06] MEDS: HEPARIN 5,000 UNIT/ML VIAL 5000 UNIT SUBCUT ×2 (09:01→20:06)
[2023-09-06] MEDS: MULTIVITAMIN 1 TABLET 1 TAB PO (09:01)
[2023-09-06] MEDS: NICOTINE 14 PATCH 14 MG TOP (09:01)
[2023-09-06] MEDS: chlordiazePOXIDE 10 MG CAPSULE PO ×3 (09:18→20:06)
--- NOTE | 2023-09-06 09:58 | PT.IIE ---
Current Diagnoses Alcohol dependence with withdrawal, unspecified (09/05/23) Physical Therapy Inpatient Evaluation/Re-Eval M1 PT/OT-IP Prior Functional Status Start: 09/06/23 13:02 Freq: NEEDED Status: Active Protocol: Document 09/06/23 09:58 AB (Rec: 09/06/23 13:39 AB [id number]) Medical Review Prior Functional Status Medical History Reviewed Yes Communication able to make needs known Mobility and Gait pt stated that he was independent with all mobilities and ambulation without AD Social History Household Members none Living Arrangements House Number of Floors (Floors) One Floor Number of Stairs To Enter/Railing? no steps to enter Home Environment Standard Height Toilet,Tub/ Shower Home Equipment Shower Seat without Backrest, Grab Bars In Shower M2 PT-IP Current Condition Start: 09/06/23 13:02 Freq: NEEDED Status: Active Protocol: Document 09/06/23 09:58 AB (Rec: 09/06/23 13:39 AB [id number]) Physical Therapy Current Condition Current Condition Evaluation Date 09/06/23 Treatment Diagnosis colon CA; CHF; difficulty in walking Onset Date 09/05/23 M3 PT-IP Subjective Start: 09/06/23 13:02 Freq: NEEDED Status: Active Protocol: Document 09/06/23 09:58 AB (Rec: 09/06/23 13:39 AB [id number]) Subjective Physical Therapy Visit Type Type Initial Evaluation Visit Start Time 09:58 Visit Stop Time 10:20 Number of DIE PRESSER Visits 0 Physical Therapy Visit Comments Patient Comments agreeable to do PT Therapy Pain Assessment Pain When Pain Assessed At Rest Pain Present Pain Present Pain Reported Location abdomen Intensity 4 Scale Used Numeric (0 - 10) Pain Management Techniques Distraction,Modification of Treatment M4 PT-IP Mobility and Gait Start: 09/06/23 13:02 Freq: NEEDED Status: Active Protocol: Document 09/06/23 09:58 AB (Rec: 09/06/23 13:39 AB [id number]) PT-Bed Mobility Assessment Supine to Sit Supine to Sit Independent Sit to Supine Sit to Supine Independent PT-Transfer Assessment Sit to and From Stand Sit to and from Stand Standby Assistance,1 Person Assistance,Use of Upper Extremities Equipment Transfer Assistive Device None,Gait Belt Orthotic/Prosthetic Devices or Brace: No Transfers Transfer Destination Chair Transfer Technique ambulated Transfer Ability Level of Assist Standby Assistance,1 Person Assistance,Use of Upper Extremities Comments Mobility Comments pt supine in bed and agreeable to do PT. obtained PLOF and home set up. BP: 126/74. O2 sat: 96% OH: 80-94.(pt with afib). completed supine to sit independent. completed sit to stand SBA and ambulated in room ~ 35 ft without AD SBA. presents with antalgic gait but without LOB. c/o feeling tired and sat on the chair. agreed to sit up on the chair. call light and table placed within reach. pt can be impulsive and repeated indicated that he wants to smoke. Gait Assessment Gait Gait Assistance Required: Standby Assistance,1 Person Assist Distance (Feet) 35 Able to Maintain Weight Bearing Status No During Gait Assistive Devices Assistive Device None,Gait Belt Orthotic/Prosthetic Devices or Brace: No Factors Limiting Gait Function Factors Limiting Gait Function Decreased Activity Tolerance, Pain,Poor Safety Awareness PT-Balance Assessment Sitting Balance and Reactions Static Sitting Balance Ability Normal Dynamic Sitting Balance Ability Normal Standing Balance and Reactions Static Standing Balance Ability Good Dynamic Standing Balance Ability Good Device Used without AD M5 PT-IP Objective Assessments Start: 09/06/23 13:02 Freq: NEEDED Status: Active Protocol: Document 09/06/23 09:58 AB (Rec: 09/06/23 13:39 AB [id number]) Orientation Orientation/Cognition Level of Alertness Alert Orientation Name Safety Awareness Decreased Safety Awareness Memory Description No Deficits Noted Gross Range of Motion Lower Extremity ROM Assessment Within Functional Limits Strength Lower Extremity Strength Assessment Within Functional Limits Muscle Tone Muscle Tone WNL Yes M7 PT-IP Assessment and Plan Start: 09/06/23 13:02 Freq: NEEDED Status: Active Protocol: Document 09/06/23 09:58 AB (Rec: 09/06/23 13:39 AB [id number]) PT Summary Assessment and Plan Potential Rehabilitation Potential Fair Status of Condition at Evaluation Evolving Summary Impairments Pain,ROM,Strength,Balance, Coordination,Sensation,Tone, Cognition,Bed Mobility, Transfers,Gait,Activity Tolerance Assessment Summary pt is a 73 y/o M who presented to the ED with c/o abdominal pain. pt found to have colon CA with mets. per EMR, pt refuses intervention for his CA and wants to just be comfortable. PT eval completed and pt requiring SBA for mobility without AD and SBA provided only for safety as pt can be impulsive. pt main issue is decrease actvity tolerance which can be accounted for his medical conditions ( a-fib, CHF, colon CA) and also lifestyle issues ( smoker and alcohol use) but pt at this time does not wish for medical interventions for his CA. No further PT intervention indicated at this time and pt to mobilize as much as possible with nursing staff. Frequency of Treatment Frequency Of Treatment Discharge Recommendations To Nursing Amount of Assist Needed Standby Assistance Discharge Recommendations PT Discharge Recommendations Home with Assistance Transportation Needs at Discharge Private Vehicle
[2023-09-06] MEDS: NICOTINE 21 MG PATCH TOP (11:08)
--- NOTE | 2023-09-06 14:05 | CM.DPC ---
DCP Cont. Reviewed EMR and team rounds for status updates. PT has signed off, recommends activity modification, no further PT needs. Will need [facility] [place] on . Will discuss d/c needs further in regard to cg/family availability for support, and hospice referral.
[2023-09-06 17:44] VITALS: BP 140/77; PULSE 101; RESP 18; TEMP 36.8; O2SAT 96
[2023-09-06] MEDS: LORazepam 1 MG TABLET PO (18:49)
[2023-09-06 20:00] VITALS: BP 127/72; PULSE 91; RESP 19; TEMP 35.9; O2SAT 94
[2023-09-06] MEDS: SENNOSIDES 8.6 MG TABLET 17.2 MG PO (20:07)
[2023-09-07] MEDS: LORazepam 1 MG TABLET PO (01:06)
[2023-09-07 04:54] LABS: Add Manual Diff / Slide Review NO; Basophils Absolute Auto 0 /uL (0-100); Basophils Percent Auto 0.4 % (0-2); Eosinophils Absolute Auto 500 /uL (0-450); Eosinophils Percent Auto 4.9 % (2-4); Hematocrit 26.7 % (41-53); Hemoglobin 8.2 g/dL (13.5-17.5); Lymphocytes Absolute Auto 1800 /uL (1100-4500); Lymphocytes Percent Auto 17.2 % (25-40); Mean Corpuscular HGB Conc 30.8 % (30-36); Mean Corpuscular Hemoglobin 22.1 PG (26-34); Mean Corpuscular Volume 71.7 fL (80-100); Monocytes Absolute Auto 700 /uL (0-900); Monocytes Percent Auto 7.3 % (3-14); Neutrophils Absolute Auto 7200 /uL (1500-7000); Neutrophils Percent Auto 70.2 % (50-75); Platelet Count 303 X10^3/uL (150-400); Red Blood Cell Count 3.72 X10^6/uL (4.5-5.9); Red Cell Distribution Width 20.6 % (11.6-14.8); White Blood Cell Count 10.2 X10^3/uL (4.5-11.0)
[2023-09-07 04:55] LABS: Alanine Aminotransferase 21 IU/L (<50); Albumin Globulin Ratio 1.1 (1.0-2.8); Alkaline Phosphatase 88 U/L (38-126); Aspartate Aminotransferase 22 IU/L (17-59); BUN Creatinine Ratio 17.3 (6-22); Bilirubin Total 0.5 mg/dL (0.2-1.3); Blood Urea Nitrogen 19 mg/dL (9-20); Carbon Dioxide 24 mmol/L (22-32); Chloride 103 mmol/L (98-107); Estimated Glomerular Filt Rate > 60 mL/min (>60); Globulin 2.7 g/dL (1.7-4.1); Glucose 104 mg/dL (80-110); HEMOLYSIS < 15 (0-50); Sodium 132 mmol/L (137-145); Total Protein 5.7 g/dL (6.3-8.2)
[2023-09-07 06:18] LABS: Anisocytosis 1+; Hypochromasia 1+; Microcytosis 1+
[2023-09-07 07:00] VITALS: BP 124/61; PULSE 91; RESP 18; TEMP 36.4
[2023-09-07] MEDS: HEPARIN 5,000 UNIT/ML VIAL 5000 UNIT SUBCUT (08:20)
[2023-09-07] MEDS: MULTIVITAMIN 1 TABLET 1 TAB PO (08:20)
[2023-09-07] MEDS: chlordiazePOXIDE 10 MG CAPSULE PO (08:20)
[2023-09-07] MEDS: FOLIC ACID 1 MG TABLET PO (08:20)
[2023-09-07] MEDS: THIAMINE 100 MG TABLET PO (08:20)
[2023-09-07] MEDS: NICOTINE 21 MG PATCH TOP (08:21)
--- NOTE | 2023-09-07 11:21 | PM.DS.1 ---
History of Present Illness History of Present Illness Date Patient Seen: 09/07/23 Time Patient Seen: 11:21 Date of Onset of Symptoms: 08/14/23 Chief complaint: Abd pain x 30 days Narrative: Per admitting provider, The patient is a 73-year-old male with a history of atrial fibrillation, medication noncompliance, and alcohol use disorder who presents from [place] by medical transport boat for profound weakness. The patient describes of crescendo abdominal pain for the last 4-6 weeks. He has been treating this intermittently with alcohol at home, sometimes drinking a half of a 5th of alcohol a day. He has been staying in a very primitive cottage on [place] and today called for help because he was unable to tolerate the pain and weakness. He does note some dyspnea with exertion. The patient has a left ankle brace on for some type of driving charges. The patient has multiple siblings who live somewhat close and a brother in [place]. The patient was found to have evidence of metastatic cancer of unknown primary with scanning in the emergency department today and took that news with calmness noting that he has done his time. He began to develop symptoms of alcohol withdrawal scoring CIWA scores of 22 in the emergency department. He was given Ativan and phenobarbital. He arrives on the floor with mild diaphoresis but denies any withdrawal symptoms or hallucinations. He has not shaking. His pain has primarily been epigastric. He has had periodic diarrhea. He notes he has no interest in further evaluation for cancer or treatment modalities but rather he would like to be comfortable and preserve his dignity. 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 Skin exam reveals mckinney on the medial aspect of both lower extremities which he notes he sustained by sitting too close to a portable propane here which he uses in his cabin. Discharge Providers Provider Date of admission: 09/05/23 13:35 Discharge Date: 09/07/23 Consults: 09/05/23 11:08 Consult to HEADER UP - [employer] [employer]man Stat Comment: new cancer needs follow up 09/05/23 15:06 Consult to Physical Therapy Evaluate & Treat Comment: Physician Instructions: Evaluate and Treat Discharge provider: Neil Mazariegos DO Summary Hospital Course Discharge Diagnosis: 1. Alcohol withdrawal, new and improved. 2. Probable metastatic colon cancer, present on admission and active. 3. Mild anemia, present on admission and active. 4. Mild hyponatremia, present on admission and active. 5. Superficial mckinney medial aspect of both legs, present on admission and active. Hospital Course: This is a 73 year old male who was admitted with alcohol withdrawal. As a result of his evaluation initially he was found to have metastatic cancer of unknown origin but likely colon. CEA level was elevated. Patient desired no further workup after discussion. His alcohol withdrawal was managed with small doses of librium, and at the time of discharge he had no evidence of ongoing withdrawal. He was discharged with supplements and he requested hydroxyzine to help with sleep. Social work was consulted, and patient plans to follow up with his [facility] resources after discharge. He was referred to hospice given no desire to workup or treat probable metastatic colon cancer. Time Spent with Patient Time spent: Greater than 30 minutes Exam Vital Signs (past 8 hours): - 09/07/23 07:00 Temperature 97.6 F Pulse Rate 91 H Respiratory Rate 18 Blood Pressure 124/61 Oxygen Flow Rate 97 Oxygen Delivery Method Room Air Oxygen Flow Rate 97 Narrative Exam Narrative: NAD, fluent speech. Normal affect. Lungs are clear, normal rate and effort. Heart is regular, no murmur. Abdomen is soft, nontender. Extremities are free of edema. Objective Labs 09/07/23 03:55 09/07/23 03:55 Labs: Laboratory Results - last 24 hr 09/07/23 03:55 WBC 10.2 RBC 3.72 L Hgb 8.2 L Hct 26.7 L MCV 71.7 L MCH 22.1 L MCHC 30.8 RDW 20.6 H Plt Count 303 Neut % (Auto) 70.2 Lymph % (Auto) 17.2 L [place] % (Auto) 7.3 Eos % (Auto) 4.9 H Baso % (Auto) 0.4 Neut # (Auto) 7200 H Lymph # (Auto) 1800 [place] # (Auto) 700 Eos # (Auto) 500 H Baso # (Auto) 0 RBC Morphology See below Hypochromasia 1+ H Anisocytosis 1+ H Microcytosis 1+ H Sodium 132 L Potassium 4.0 Chloride 103 Carbon Dioxide 24 BUN 19 Creatinine 1.10 Estimated GFR > 60 BUN/Creatinine Ratio 17.3 Glucose 104 Calcium 8.0 L Total Bilirubin 0.5 AST 22 ALT 21 Alkaline Phosphatase 88 Total Protein 5.7 L Albumin 3.0 L Globulin 2.7 Albumin/Globulin Ratio 1.1 [facility] Social History household members: none Smoking Status: Current every day smoker alcohol intake: current Discharge Plan Discharge Plan Patient Disposition: Home Provider Discharge Comment: You were admitted to the hospital with alcohol withdrawal. This improved with supportive care. You were also found to have likely metastatic colon cancer and did not want to obtain any additional evaluation. Discharge orders & Medications Prescriptions: New folic acid 1 mg Tablet 1 mg PO DAILY 30 Days Qty: 30 0RF thiamine mononitrate (vit B1) 100 mg Tablet 100 mg PO DAILY 30 Days Qty: 30 0RF multivitamin with folic acid [Tab-A-Regine] 400 mcg Tablet 1 tab PO DAILY 30 Days Qty: 30 0RF hydroxyzine HCl 25 mg tablet 25 mg PO BEDTIME PRN (Reason: insomnia) 30 Days Qty: 30 0RF Diet/Activity/Treatments Diet: Diet as Tolerated and Regular Activity: As tolerated, no restrictions. Visit Report/Discharge Packet Instructions: Alcohol and Stress: There are Safer Ways to [place] Stand Alone Forms: Patient Portal/API, Stroke Signs & Symptoms Quality VTE Deep Vein Thrombosis/Pulmonary Embolism Present on Admission: Yes
--- NOTE | 2023-09-07 12:52 | CM.DPC ---
DCP Discharge Home Per MD, pt remains medically stable to d/c home today with outpt f/u and Hospice referral. Per PT, pt an independent ambulator and no PT needs at this time. Rashid, Insurance Follow Up Rep/Spiritual Care provided support to pt bedside this AM. TERRI met bedside with pt and explained role and he confirms he has lived on [place] for many years and his family has lived there for at least 4 generations. Pt has supportive cousins and family that he sees that also live on [place]. Pt confirms that his preference is to d/c home to [place] and not seek any tx for his new CA with mets dx. Pt states he is agreeable to [facility] referral for need of Hospice in the near future. TERRI made referral to [facility] and confirmed with Arabella they received the referral and SW provided pt's Medicare A information as well. TERRI faxed d/c summary to [facility] to review. TERRI provided the [facility] enrollment 10-10EZ form that [facility] Cyndy Haywood provided and pt was able to complete and SW called VA and determined a fax number to send pt's enrollment forms to and [place] recommends pt call them in about 5 days for determination that he qualifies for their enrollment program for coverage and likely additional support in home for Hospice care. ALTON Londono scanned enrollment application into EMR and TERRI provided original back to pt and updated and he remains appreciative. Pt confirms his living situation is less than ideal for when I will need Hospice as he lives in a cabin with minimal heat or space but pt has succeeded in living in this situation. Pt states that he has plenty of money to pay for rent, there is just such a lack of rental options on [place]. Pt states he has spoken to his friend who owns [employer] (resort/motel on [place]) and there are plenty of open and available rooms since its the off-season for tourists and pt can afford to stay there and plans to stay at the [facility] for the time being. Pt states he is comfortable taking [employer] to [place] the [id number] ferry back to [place] and has a friend to provide transport once on [place]. Pt denies any further needs at this time as he currently has no pain, is independently able to ambulate, has family on [place] and is willing to continue working to get better [place] in [place]. and RN updated. RN assisted in getting [facility] i scheduled [facility] and pt about to get in the shower and shave now before returning home. RACH Watson
== END 2023-09-07 13:54 | disposition home or self-care (01) | DRG 897 ==
LOC: ED 10:21 → AC 13:37
PROVIDERS: Admitting Provider Hospitalist; Emergency Provider Emergency Medicine; Referring Provider Emergency Medicine; Visit Provider Hospitalist
DX: F10.239 Alcohol dependence with withdrawal, unspecified (principal); C18.9 Malignant neoplasm of colon, unspecified; C79.9 Secondary malignant neoplasm of unspecified site; I50.9 Heart failure, unspecified; F15.10 Other stimulant abuse, uncomplicated; Y90.2 Blood alcohol level of 40-59 mg/100 ml; Z66 Do not resuscitate
CPT/HCPCS: 36415; 71045; 74177; 80053; 80305; 80320; 82378; 82550; 83690; 83880; 84484; 85025; 85610; 85730; 93005; 96374; 96375; 97162; 99284; J1644; J1940; J2060; J2270; J2405; J2560; Q9967

== ENCOUNTER 2024-04-16 12:55 | Emergency (ER) | payer OTHER, SELFPAY ==
[2023-09-05 15:03] VITALS: BMI 29.0
[2024-04-16] VITALS (13 sets, daily range): BP systolic 123–164; BP diastolic 69–100; PULSE 84–97; RESP 13–22; TEMP 36.5; O2SAT 94–99; BMI 27.3
--- NOTE | 2024-04-16 13:05 | DI.RAD.S_ITS ---
PROCEDURE: XR CHEST 1V INDICATIONS: Shortness of breath TECHNIQUE: One view of the chest was acquired. COMPARISON: [facility], CR, XR CHEST 1V, 09/05/2023, 8:22. FINDINGS: Surgical changes and devices: None. Lungs and pleura: Lungs are clear. No pleural effusions or pneumothorax. Mediastinum: Mediastinal contours appear normal. Heart size is normal. Bones and chest wall: No suspicious bony lesions. Overlying soft tissues appear unremarkable. IMPRESSION: No acute cardiopulmonary abnormality is seen. Dictated by: Amadeo Barron M.D. on 04/16/2024 at 13:40 Approved by: Amadeo Barron M.D. on 04/16/2024 at 13:41
--- NOTE | 2024-04-16 13:14 | EKG_ITS ---
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
[2024-04-16 14:14] LABS: Add Manual Diff / Slide Review NO; Basophils Absolute Auto 0 /uL (0-100); Basophils Percent Auto 0.5 % (0-2); Eosinophils Absolute Auto 400 /uL (0-450); Eosinophils Percent Auto 7.7 % (2-4); Hematocrit 34.2 % (41-53); Hemoglobin 11.2 g/dL (13.5-17.5); Lymphocytes Absolute Auto 1200 /uL (1100-4500); Mean Corpuscular HGB Conc 32.8 % (30-36); Mean Corpuscular Hemoglobin 31.2 PG (26-34); Mean Corpuscular Volume 95.1 fL (80-100); Monocytes Absolute Auto 600 /uL (0-900); Monocytes Percent Auto 9.8 % (3-14); Neutrophils Absolute Auto 3600 /uL (1500-7000); Platelet Count 204 X10^3/uL (150-400); Red Cell Distribution Width 26.4 % (11.6-14.8); White Blood Cell Count 5.9 X10^3/uL (4.5-11.0)
[2024-04-16 14:16] LABS: INR 1.1 (0.9-1.3); Prothrombin Time 12.6 SECONDS (9.4-12.5)
[2024-04-16 14:21] LABS: Alanine Aminotransferase 74 IU/L (<50); Albumin 3.8 g/dL (3.5-5.0); Albumin Globulin Ratio 1.4 (1.0-2.8); Alkaline Phosphatase 109 U/L (38-126); Aspartate Aminotransferase 97 IU/L (17-59); BUN Creatinine Ratio 8.7 (6-22); Blood Urea Nitrogen 18 mg/dL (9-20); Calcium 8.6 mg/dL (8.4-10.2); Carbon Dioxide 21 mmol/L (22-32); Chloride 107 mmol/L (98-107); Estimated Glomerular Filt Rate 33 mL/min (>60); Globulin 2.8 g/dL (1.7-4.1); Glucose 107 mg/dL (80-110); HEMOLYSIS < 15 (0-50); Lactate (Lactic Acid) 1.1 mmol/L (0.7-2.1); Potassium 4.8 mmol/L (3.4-5.1); Sodium 135 mmol/L (137-145); Total Protein 6.6 g/dL (6.3-8.2)
[2024-04-16 14:34] LABS: NT-proBNP (BNP-Adult 18+) 77 pg/mL (<125); Troponin I < 0.012 ng/mL (0.01-0.034)
[2024-04-16 14:41] LABS: Anisocytosis 2+
--- NOTE | 2024-04-16 16:40 | ED_ITS ---
HPI - SOB/Dyspnea <Lisbet Munguia DO - Last Filed: 04/25/24 04:40> General Chief Complaint: Shortness of Breath/Dyspnea Stated Complaint: sent by FABIÁN TOVAR Time Seen by Provider: 04/16/24 16:39 Source: patient Mode of arrival: Ambulatory Limitations: no limitations History of Present Illness HPI Narrative: 74-year-old male history of alcohol abuse, atrial fibrillation, prior renal carcinoma with resection of his kidney and partial colon resection in October, atrial fibrillation started on Eliquis 3 days ago. Patient describes feeling short of breath on and off once or twice a week for months. States he is felt more short of breath in the last day or 2. States lots of little episodes. States worse when he is flat but he is lying flat during examination. Patient states no chest pain or pressure he denies palpitations. States he has edema in his lower extremities but it is getting better. States he is felt warm, he has had some nausea and vomiting and states multiple bowel movements that are diarrhea in the last several days. Has chronic abdominal pain which he states is usually a brief 2nd or 2 of pain and then resolves over the site of his incision. No syncope. No urinary symptoms. Patient states he is quite itchy and takes hydroxyzine in his requesting a dose. Patient states he is currently on losartan carvedilol, Eliquis, hydroxyzine for his daily medications. States he smokes several cigarettes daily, states he has been drinking a 5th of alcohol daily, denies recreational drugs besides THC. Denies any history of methamphetamine use although remote urine drug screens were positive. Patient lives on [place]. Has established with primary care. Related Data Allergies Allergy/AdvReac Type Severity Reaction Status Date / Time amiodarone Allergy Verified 04/16/24 13:00 metoprolol Allergy Verified 04/16/24 13:00 Review of Systems <Lisbet Munguia DO - Last Filed: 04/25/24 04:40> Review of Systems ROS Unobtainable: All systems reviewed & are unremarkable except as noted in HPI and below Patient History <Lisbet Munguia DO - Last Filed: 04/25/24 04:40> Social History household members: none Smoking Status: Current every day smoker alcohol intake: current Smoking Status: Current every day smoker alcohol intake frequency: 3 or more drinks per day Alcohol type: hard liquor Substance Use Type: marijuana and unknown Exam <Lisbet Munguia DO - Last Filed: 04/25/24 04:40> Narrative Exam Narrative: GENERAL: Alert and oriented x three, mild distress. Patient was lying flat on his back. HEENT: Head normocephalic, atraumatic, EOMI, pupils reactive, face symmetric, moist mucous membranes NECK: Supple, full range of motion CARDIOVASCULAR: Regular rate and rhythm without murmurs, rubs or gallops. No edema, no JVD. RESPIRATORY: Breath sounds equal bilaterally, no wheezes rales or rhonchi. No tachypnea accessory muscle use. ABDOMEN: Soft, patient has some tenderness over his right abdominal incision which is healed. Normoactive bowel sounds all 4 quadrants. No guarding or rebound, rigidity, no mass : No CVA tenderness EXTREMITIES: Normal range of motion, no clubbing or edema. Neurovascularly intact NEUROLOGICAL: Cranial nerves II through XII grossly intact. Moving all extremities SKIN: Warm, dry, no petechiae, no rashes or lesions. Initial Vital Signs Initial Vital Signs: Vital Signs Temperature 97.7 F 04/16/24 13:00 Pulse Rate 97 H 04/16/24 13:00 Respiratory Rate 16 04/16/24 13:00 Blood Pressure 146/100 H 04/16/24 13:00 Pulse Oximetry 98 04/16/24 13:00 Oxygen Delivery Method Room Air 04/16/24 13:00 <Lisbet Gutierrez MD - Last Filed: 04/17/24 23:00> Initial Vital Signs Initial Vital Signs: Vital Signs Temperature 97.7 F 04/16/24 13:00 Pulse Rate 97 H 04/16/24 13:00 Respiratory Rate 16 04/16/24 13:00 Blood Pressure 146/100 H 04/16/24 13:00 Pulse Oximetry 98 04/16/24 13:00 Oxygen Delivery Method Room Air 04/16/24 13:00 Course <Lisbet Munguia DO - Last Filed: 04/25/24 04:40> Orders Ordered: Discontinued Medications Hydroxyzine HCl (Hydroxyzine Hcl 25 Mg Tablet) 25 mg PO NOW ONE Stop: 04/16/24 16:59 Last Admin: 04/16/24 17:01 Dose: 25 mg Documented By: MPO Sodium Chloride (Normal Saline 0.9%) 1,000 mls @ 1,000 mls/hr IV BOLUS ONE Stop: 04/16/24 19:26 Last Admin: 04/16/24 18:34 Dose: 1,000 mls/hr Documented By: YORDAN Vital Signs Vital signs: Vital Signs - 8 hr 04/16/24 13:00 04/16/24 13:22 04/16/24 13:24 Temperature 97.7 F Pulse Rate 97 H 94 H Respiratory Rate 16 Blood Pressure 146/100 H 123/84 Pulse Oximetry 98 98 Oxygen Delivery Method Room Air 04/16/24 13:24 04/16/24 13:30 04/16/24 13:30 Temperature Pulse Rate 93 H 88 Respiratory Rate 16 18 Blood Pressure 131/90 Pulse Oximetry 96 97 Oxygen Delivery Method 04/16/24 14:00 04/16/24 14:00 04/16/24 14:30 Temperature Pulse Rate 90 87 Respiratory Rate 13 Blood Pressure 128/69 Pulse Oximetry 95 95 Oxygen Delivery Method 04/16/24 14:31 04/16/24 14:31 04/16/24 15:04 Temperature Pulse Rate 87 97 H Respiratory Rate 15 Blood Pressure 153/80 H Pulse Oximetry 94 Oxygen Delivery Method 04/16/24 15:06 04/16/24 15:06 04/16/24 15:30 Temperature Pulse Rate 94 H 89 Respiratory Rate 14 Blood Pressure 164/77 H Pulse Oximetry 97 96 Oxygen Delivery Method 04/16/24 15:30 04/16/24 16:00 04/16/24 16:00 Temperature Pulse Rate 87 Respiratory Rate 14 Blood Pressure 129/70 146/83 H Pulse Oximetry 96 Oxygen Delivery Method 04/16/24 18:10 Temperature Pulse Rate 86 Respiratory Rate Blood Pressure 146/81 H Pulse Oximetry Oxygen Delivery Method <Lisbet Gutierrez MD - Last Filed: 04/17/24 23:00> Orders Ordered: Discontinued Medications Hydroxyzine HCl (Hydroxyzine Hcl 25 Mg Tablet) 25 mg PO NOW ONE Stop: 04/16/24 16:59 Last Admin: 04/16/24 17:01 Dose: 25 mg Documented By: MPO Sodium Chloride (Normal Saline 0.9%) 1,000 mls @ 1,000 mls/hr IV BOLUS ONE Stop: 04/16/24 19:26 Last Admin: 04/16/24 18:34 Dose: 1,000 mls/hr Documented By: YORDAN Vital Signs Vital signs: Vital Signs - 8 hr 04/16/24 13:00 04/16/24 13:22 04/16/24 13:24 Temperature 97.7 F Pulse Rate 97 H 94 H Respiratory Rate 16 Blood Pressure 146/100 H 123/84 Pulse Oximetry 98 98 Oxygen Delivery Method Room Air 04/16/24 13:24 04/16/24 13:30 04/16/24 13:30 Temperature Pulse Rate 93 H 88 Respiratory Rate 16 18 Blood Pressure 131/90 Pulse Oximetry 96 97 Oxygen Delivery Method 04/16/24 14:00 04/16/24 14:00 04/16/24 14:30 Temperature Pulse Rate 90 87 Respiratory Rate 13 Blood Pressure 128/69 Pulse Oximetry 95 95 Oxygen Delivery Method 04/16/24 14:31 04/16/24 14:31 04/16/24 15:04 Temperature Pulse Rate 87 97 H Respiratory Rate 15 Blood Pressure 153/80 H Pulse Oximetry 94 Oxygen Delivery Method 04/16/24 15:06 04/16/24 15:06 04/16/24 15:30 Temperature Pulse Rate 94 H 89 Respiratory Rate 14 Blood Pressure 164/77 H Pulse Oximetry 97 96 Oxygen Delivery Method 04/16/24 15:30 04/16/24 16:00 04/16/24 16:00 Temperature Pulse Rate 87 Respiratory Rate 14 Blood Pressure 129/70 146/83 H Pulse Oximetry 96 Oxygen Delivery Method 04/16/24 18:10 Temperature Pulse Rate 86 Respiratory Rate Blood Pressure 146/81 H Pulse Oximetry Oxygen Delivery Method MDM - SOB/Dyspnea <Lisbet Munguia, - Last Filed: 04/25/24 04:40> Lab Data 04/16/24 13:51 04/16/24 13:51 Labs: Lab Results 04/16/24 04/16/24 04/16/24 Range/Units 13:51 16:45 18:35 WBC 5.9 (4.5-11.0) X10^3/uL RBC 3.60 L (4.5-5.9) X10^6/uL Hgb 11.2 L (13.5-17.5) g/dL Hct 34.2 L (41-53) % MCV 95.1 (80-100) fL MCH 31.2 (26-34) PG MCHC 32.8 (30-36) % RDW 26.4 H (11.6-14.8) % Plt Count 204 (150-400) X10^3/uL Neut % (Auto) 61.0 (50-75) % Lymph % (Auto) 21.0 L (25-40) % [place] % (Auto) 9.8 (3-14) % Eos % (Auto) 7.7 H (2-4) % Baso % (Auto) 0.5 (0-2) % Neut # (Auto) 3600 (2847-7965) /uL Lymph # (Auto) 1200 (4184-5995) /uL [place] # (Auto) 600 (0-900) /uL Eos # (Auto) 400 (0-450) /uL Baso # (Auto) 0 (0-100) /uL RBC Morphology See below Anisocytosis 2+ H PT 12.6 H (9.4-12.5) SECONDS INR 1.1 (0.9-1.3) Sodium 135 L (137-145) mmol/L Potassium 4.8 (3.4-5.1) mmol/L Chloride 107 (98-107) mmol/L Carbon Dioxide 21 L (22-32) mmol/L BUN 18 (9-20) mg/dL Creatinine 2.08 H (0.66-1.25) mg/dL Estimated GFR 33 L (>60) mL/min BUN/Creatinine Ratio 8.7 (6-22) Glucose 107 (80-110) mg/dL Lactate 1.1 (0.7-2.1) mmol/L Calcium 8.6 (8.4-10.2) mg/dL Total Bilirubin 1.0 (0.2-1.3) mg/dL AST 97 H (17-59) IU/L ALT 74 H (<50) IU/L Alkaline Phosphatase 109 (38-126) U/L Troponin I < 0.012 < 0.012 (0.01-0.034) ng/mL NT-Pro-B Natriuret Pep 77 (<125) pg/mL Total Protein 6.6 (6.3-8.2) g/dL Albumin 3.8 (3.5-5.0) g/dL Globulin 2.8 (1.7-4.1) g/dL Albumin/Globulin Ratio 1.4 (1.0-2.8) Urine Color Yellow Urine Appearance Clear Urine pH 6.5 (4.5-8.0) Ur Specific Sarah Ann 1.015 (1.000-1.035) Urine Protein Trace H (Negative) Urine Glucose (UA) Negative (Negative) g/dL Urine Ketones Negative (NEGATIVE) Urine Occult Blood Trace-intact (Negative) Urine Nitrate Negative (Negative) Urine Bilirubin Negative (NEGATIVE) Urine Urobilinogen 0.2 (0.2) E.U./dL Ur Leukocyte Esterase Negative (NEGATIVE) Urine RBC 0-1/hpf (0-5/HPF) Urine WBC 0-1/hpf (0-5/HPF) Ur Squamous Epith Cells 0-1 /hpf (0-5/HPF) Urine Bacteria Occasional (0-1) (None) Ur Culture Indicated? Cult not indicated Vol Urine Centrifuged 10ml (spun) U Opiates 300ng/mL cut Negative (Negative) Ur Oxycodone Screen Negative (Negative) Urine Methadone Screen Negative (Negative) Ur Barbiturates Screen Negative (Negative) U Tricyclic Antidepress Negative (Negative) Ur Phencyclidine Scrn Negative (Negative) Ur Amphetamines Screen Negative (Negative) U Methamphetamines Scrn Negative (Negative) Ur MDMA Scrn (Ecstasy) Negative (Negative) U Benzodiazepines Scrn Negative (Negative) Urine Cocaine Screen Negative (Negative) U Marijuana (THC) Screen Negative (Negative) Urine Specific Sarah Ann (Normal) Ur Creatinine (Normal) 04/16/24 Range/Units 18:35 WBC (4.5-11.0) X10^3/uL RBC (4.5-5.9) X10^6/uL Hgb (13.5-17.5) g/dL Hct (41-53) % MCV (80-100) fL MCH (26-34) PG MCHC (30-36) % RDW (11.6-14.8) % Plt Count (150-400) X10^3/uL Neut % (Auto) (50-75) % Lymph % (Auto) (25-40) % [place] % (Auto) (3-14) % Eos % (Auto) (2-4) % Baso % (Auto) (0-2) % Neut # (Auto) (1558-0580) /uL Lymph # (Auto) (4536-9961) /uL [place] # (Auto) (0-900) /uL Eos # (Auto) (0-450) /uL Baso # (Auto) (0-100) /uL RBC Morphology Anisocytosis PT (9.4-12.5) SECONDS INR (0.9-1.3) Sodium (137-145) mmol/L Potassium (3.4-5.1) mmol/L Chloride (98-107) mmol/L Carbon Dioxide (22-32) mmol/L BUN (9-20) mg/dL Creatinine (0.66-1.25) mg/dL Estimated GFR (>60) mL/min BUN/Creatinine Ratio (6-22) Glucose (80-110) mg/dL Lactate (0.7-2.1) mmol/L Calcium (8.4-10.2) mg/dL Total Bilirubin (0.2-1.3) mg/dL AST (17-59) IU/L ALT (<50) IU/L Alkaline Phosphatase (38-126) U/L Troponin I (0.01-0.034) ng/mL NT-Pro-B Natriuret Pep (<125) pg/mL Total Protein (6.3-8.2) g/dL Albumin (3.5-5.0) g/dL Globulin (1.7-4.1) g/dL Albumin/Globulin Ratio (1.0-2.8) Urine Color Urine Appearance Urine pH Normal (4.5-8.0) Ur Specific Sarah Ann (1.000-1.035) Urine Protein (Negative) Urine Glucose (UA) (Negative) g/dL Urine Ketones (NEGATIVE) Urine Occult Blood (Negative) Urine Nitrate (Negative) Urine Bilirubin (NEGATIVE) Urine Urobilinogen (0.2) E.U./dL Ur Leukocyte Esterase (NEGATIVE) Urine RBC (0-5/HPF) Urine WBC (0-5/HPF) Ur Squamous Epith Cells (0-5/HPF) Urine Bacteria (None) Ur Culture Indicated? Vol Urine Centrifuged U Opiates 300ng/mL cut (Negative) Ur Oxycodone Screen (Negative) Urine Methadone Screen (Negative) Ur Barbiturates Screen (Negative) U Tricyclic Antidepress (Negative) Ur Phencyclidine Scrn (Negative) Ur Amphetamines Screen (Negative) U Methamphetamines Scrn (Negative) Ur MDMA Scrn (Ecstasy) (Negative) U Benzodiazepines Scrn (Negative) Urine Cocaine Screen (Negative) U Marijuana (THC) Screen (Negative) Urine Specific Sarah Ann Normal (Normal) Ur Creatinine Normal (Normal) Imaging Data Chest x-ray: Radiologist's Impression: Close Chest X-Ray (Signed) Amadeo Barron - 04/16/24 Telemetry Strips 09/05/23 Chest X-Ray (Signed) Edson Mosquera - 09/05/23 Abdomen/Pelvis CT (Signed) Patricia Gomez - 09/05/23 Launch?Image [address] [address] XRay Report Signed Patient: Yves Garnica MR#: [id number] : 1950 Acct:[id number] Age/Sex: 74 / M Date of Service: 04/16/24 Loc: ED Accession Number: [id number] Procedure: XR chest 1V Ordering Provider: Lisbet Munguia D.O. PROCEDURE: XR CHEST 1V INDICATIONS: Shortness of breath TECHNIQUE: One view of the chest was acquired. COMPARISON: [facility], , XR CHEST 1V, 09/05/2023, 8:22. FINDINGS: Surgical changes and devices: None. Lungs and pleura: Lungs are clear. No pleural effusions or pneumothorax. Mediastinum: Mediastinal contours appear normal. Heart size is normal. Bones and chest wall: No suspicious bony lesions. Overlying soft tissues appear unremarkable. IMPRESSION: No acute cardiopulmonary abnormality is seen. Dictated by: Amadeo Barron M.D. on 04/16/2024 at 13:40 Approved by: Amadeo Barron M.D. on 04/16/2024 at 13:41 ECG Data Attestation: I personally reviewed and interpreted this ECG as follows: Prior ECG tracings: available for review Interpretation: Patient has already junctional rhythm on report but does not appear to have P waves with QRS is appears to be sinus rhythm to myself. Rate of 92 QRS is 66 QTC of 440. Patient has prior from 09/05/2023 was sinus tach at that time no acute ST changes in comparison. MDM Narrative Medical decision making narrative: 74-year-old male with history of renal cell carcinoma with prior nephrectomy and: Resection in October of 2023 patient states he had complicated hospital stay was intubated had a GI bleed even had a cardiac arrest. Since then unclear if he has been following regularly with primary care. Patient is unsure of his baseline creatinine. He describes shortness of breath chronically but worsened lately. Workup shows no acute cardiac or pulmonary change. Renal function is elevated but this is post nephrectomy. No baseline available. Labs show white count of 5.9 hemoglobin 11.2 platelets of 204. INR is 1.1. Sodium is 135 potassium 4.8 chloride 107 CO2 is 21 BUN 18 creatinine 2.08 this is increased from in August 2023., patient notes he did not have a nephrectomy in October for renal cell carcinoma so has a solitary kidney he is unsure of his baseline creatinine. Glucose is 107, lactate 1.1 with bilirubin of 1, AST of 97 ALT of 74 alk-phos of 109, troponins less than 0.012 with a BNP of 77. Troponin was repeated in his less than 0.012 Chest x-ray shows no acute change EKG shows junctional versus sinus rhythm, no acute ST changes. UA UDS CT KUB patient is having some abdominal pain some nausea vomiting diarrhea. CT pending. Patient signed out to Dr. Gutierrez while awaiting CT imaging. Dr. Gutierrez - care of patient signed to me by Dr. Munguia. Independent review of labs and chart performed. Patient is resting comfortably on his side in ED bed, vital signs stable, saturations normal on room air, patient conversational without dyspnea. Patient informed of lab and imaging findings. Recommended close PCP follow up for further investigation of his waxing and waning shortness of breath. <Lisbet Gutierrez MD - Last Filed: 04/17/24 23:00> Lab Data Labs: Lab Results 04/16/24 04/16/24 04/16/24 Range/Units 13:51 16:45 18:35 WBC 5.9 (4.5-11.0) X10^3/uL RBC 3.60 L (4.5-5.9) X10^6/uL Hgb 11.2 L (13.5-17.5) g/dL Hct 34.2 L (41-53) % MCV 95.1 (80-100) fL MCH 31.2 (26-34) PG MCHC 32.8 (30-36) % RDW 26.4 H (11.6-14.8) % Plt Count 204 (150-400) X10^3/uL Neut % (Auto) 61.0 (50-75) % Lymph % (Auto) 21.0 L (25-40) % [place] % (Auto) 9.8 (3-14) % Eos % (Auto) 7.7 H (2-4) % Baso % (Auto) 0.5 (0-2) % Neut # (Auto) 3600 (6537-0184) /uL Lymph # (Auto) 1200 (5171-4885) /uL [place] # (Auto) 600 (0-900) /uL Eos # (Auto) 400 (0-450) /uL Baso # (Auto) 0 (0-100) /uL RBC Morphology See below Anisocytosis 2+ H PT 12.6 H (9.4-12.5) SECONDS INR 1.1 (0.9-1.3) Sodium 135 L (137-145) mmol/L Potassium 4.8 (3.4-5.1) mmol/L Chloride 107 (98-107) mmol/L Carbon Dioxide 21 L (22-32) mmol/L BUN 18 (9-20) mg/dL Creatinine 2.08 H (0.66-1.25) mg/dL Estimated GFR 33 L (>60) mL/min BUN/Creatinine Ratio 8.7 (6-22) Glucose 107 (80-110) mg/dL Lactate 1.1 (0.7-2.1) mmol/L Calcium 8.6 (8.4-10.2) mg/dL Total Bilirubin 1.0 (0.2-1.3) mg/dL AST 97 H (17-59) IU/L ALT 74 H (<50) IU/L Alkaline Phosphatase 109 (38-126) U/L Troponin I < 0.012 < 0.012 (0.01-0.034) ng/mL NT-Pro-B Natriuret Pep 77 (<125) pg/mL Total Protein 6.6 (6.3-8.2) g/dL Albumin 3.8 (3.5-5.0) g/dL Globulin 2.8 (1.7-4.1) g/dL Albumin/Globulin Ratio 1.4 (1.0-2.8) Urine Color Yellow Urine Appearance Clear Urine pH 6.5 (4.5-8.0) Ur Specific [place] Ann 1.015 (1.000-1.035) Urine Protein Trace H (Negative) Urine Glucose (UA) Negative (Negative) g/dL Urine Ketones Negative (NEGATIVE) Urine Occult Blood Trace-intact (Negative) Urine Nitrate Negative (Negative) Urine Bilirubin Negative (NEGATIVE) Urine Urobilinogen 0.2 (0.2) E.U./dL Ur Leukocyte Esterase Negative (NEGATIVE) Urine RBC 0-1/hpf (0-5/HPF) Urine WBC 0-1/hpf (0-5/HPF) Ur Squamous Epith Cells 0-1 /hpf (0-5/HPF) Urine Bacteria Occasional (0-1) (None) Ur Culture Indicated? Cult not indicated Vol Urine Centrifuged 10ml (spun) U Opiates 300ng/mL cut Negative (Negative) Ur Oxycodone Screen Negative (Negative) Urine Methadone Screen Negative (Negative) Ur Barbiturates Screen Negative (Negative) U Tricyclic Antidepress Negative (Negative) Ur Phencyclidine Scrn Negative (Negative) Ur Amphetamines Screen Negative (Negative) U Methamphetamines Scrn Negative (Negative) Ur MDMA Scrn (Ecstasy) Negative (Negative) U Benzodiazepines Scrn Negative (Negative) Urine Cocaine Screen Negative (Negative) U Marijuana (THC) Screen Negative (Negative) Urine Specific Sarah Ann (Normal) Ur Creatinine (Normal) 04/16/24 Range/Units 18:35 WBC (4.5-11.0) X10^3/uL RBC (4.5-5.9) X10^6/uL Hgb (13.5-17.5) g/dL Hct (41-53) % MCV (80-100) fL MCH (26-34) PG MCHC (30-36) % RDW (11.6-14.8) % Plt Count (150-400) X10^3/uL Neut % (Auto) (50-75) % Lymph % (Auto) (25-40) % [place] % (Auto) (3-14) % Eos % (Auto) (2-4) % Baso % (Auto) (0-2) % Neut # (Auto) (3747-0209) /uL Lymph # (Auto) (4529-8587) /uL [place] # (Auto) (0-900) /uL Eos # (Auto) (0-450) /uL Baso # (Auto) (0-100) /uL RBC Morphology Anisocytosis PT (9.4-12.5) SECONDS INR (0.9-1.3) Sodium (137-145) mmol/L Potassium (3.4-5.1) mmol/L Chloride (98-107) mmol/L Carbon Dioxide (22-32) mmol/L BUN (9-20) mg/dL Creatinine (0.66-1.25) mg/dL Estimated GFR (>60) mL/min BUN/Creatinine Ratio (6-22) Glucose (80-110) mg/dL Lactate (0.7-2.1) mmol/L Calcium (8.4-10.2) mg/dL Total Bilirubin (0.2-1.3) mg/dL AST (17-59) IU/L ALT (<50) IU/L Alkaline Phosphatase (38-126) U/L Troponin I (0.01-0.034) ng/mL NT-Pro-B Natriuret Pep (<125) pg/mL Total Protein (6.3-8.2) g/dL Albumin (3.5-5.0) g/dL Globulin (1.7-4.1) g/dL Albumin/Globulin Ratio (1.0-2.8) Urine Color Urine Appearance Urine pH Normal (4.5-8.0) Ur Specific [place] Ann (1.000-1.035) Urine Protein (Negative) Urine Glucose (UA) (Negative) g/dL Urine Ketones (NEGATIVE) Urine Occult Blood (Negative) Urine Nitrate (Negative) Urine Bilirubin (NEGATIVE) Urine Urobilinogen (0.2) E.U./dL Ur Leukocyte Esterase (NEGATIVE) Urine RBC (0-5/HPF) Urine WBC (0-5/HPF) Ur Squamous Epith Cells (0-5/HPF) Urine Bacteria (None) Ur Culture Indicated? Vol Urine Centrifuged U Opiates 300ng/mL cut (Negative) Ur Oxycodone Screen (Negative) Urine Methadone Screen (Negative) Ur Barbiturates Screen (Negative) U Tricyclic Antidepress (Negative) Ur Phencyclidine Scrn (Negative) Ur Amphetamines Screen (Negative) U Methamphetamines Scrn (Negative) Ur MDMA Scrn (Ecstasy) (Negative) U Benzodiazepines Scrn (Negative) Urine Cocaine Screen (Negative) U Marijuana (THC) Screen (Negative) Urine Specific Sarah Ann Normal (Normal) Ur Creatinine Normal (Normal) MDM Narrative Medical decision making narrative: 74-year-old male with history of renal cell carcinoma with prior nephrectomy and: Resection in October of 2023 patient states he had complicated hospital stay was intubated had a GI bleed even had a cardiac arrest. Since then unclear if he has been following regularly with primary care. Patient is unsure of his baseline creatinine. He describes shortness of breath chronically but worsened lately. Workup shows no acute cardiac or pulmonary change. Renal function is elevated but this is post nephrectomy. No baseline available. Labs show white count of 5.9 hemoglobin 11.2 platelets of 204. INR is 1.1. Sodium is 135 potassium 4.8 chloride 107 CO2 is 21 BUN 18 creatinine 2.08 this is increased from in August 2023., patient notes he did not have a nephrectomy in October for renal cell carcinoma so has a solitary kidney he is unsure of his baseline creatinine. Glucose is 107, lactate 1.1 with bilirubin of 1, AST of 97 ALT of 74 alk-phos of 109, troponins less than 0.012 with a BNP of 77. Troponin was repeated in his less than 0.012 Chest x-ray shows no acute change EKG shows junctional versus sinus rhythm, no acute ST changes. UA UDS CT KUB patient is having some abdominal pain some nausea vomiting diarrhea. Dr. Gutierrez - care of patient signed to me by Dr. Munguia. Independent review of labs and chart performed. Patient is resting comfortably on his side in ED bed, vital signs stable, saturations normal on room air, patient conversational without dyspnea. Patient informed of lab and imaging findings. Recommended close PCP follow up for further investigation of his waxing and waning shortness of breath. Discharge Plan Departure Patient Disposition: Home Clinical Impression: Shortness of Breath, Alcohol use, Elevated serum creatinine Instructions: Creatinine, DI for Shortness of Breath Activity Restrictions/Additional Instructions: Follow up with your physician for recheck. Your renal function today is elevated but this maybe secondary to your prior nephrectomy. Please follow with your physician to have it rechecked and make sure it is not worsening. Please return for fevers, increasing chest pain or shortness of breath, passing out, persistent vomiting, persistent black or bloody stools, new swelling of your extremities or other new or concerning changes. Stand Alone Forms: Patient Portal/API
--- NOTE | 2024-04-16 16:58 | DI.CT.S_ITS ---
PROCEDURE: CT KIDNEY URETER BLADDER (KUB) INDICATIONS: hx renal/colon ca, nephrectomy, resect, v/d TECHNIQUE: Axial sections were acquired from the lung bases to the pubic symphysis. Coronal and sagittal reformats were performed. For radiation dose reduction, the following was used: automated exposure control, adjustment of mA and/or kV according to patient size. COMPARISON: [facility], CT, CT CHEST ABDOMEN PELVIS WITHOUT CONTRAST, 11/20/2023, 5:06. FINDINGS: Image quality: Diagnostic. Lower Chest: No significant findings. Gynecomastia. URINARY: Right Kidney: Absent. No obvious mass in the nephrectomy bed. Right Ureter: No hydroureter. Left Kidney: No definite stones or hydronephrosis. Left Ureter: No hydroureter. Bladder: Mostly decompressed. No stones. ABDOMEN: Liver: No contour-deforming solid mass. Hepatic steatosis. Gallbladder: Absent. Biliary ducts: No biliary dilation. Pancreas: No ductal dilation. Spleen: Size is within normal limits. Adrenal Glands: No left adrenal nodules. Right adrenal gland appears absent. Stomach and Bowel: Right ileocolic anastomosis. Diverticulosis. No small bowel obstruction. Stomach is unremarkable. Peritoneum: No abnormal intraperitoneal fluid. No free air. Ventral Wall: No hernia. Abdominal Nodes: No enlarged retroperitoneal or mesenteric lymph nodes. Vessels: Aorta measures 3.6 cm, (4/39). Moderate to severe calcified plaque. PELVIS: Pelvic Organs: Unremarkable. Pelvic Nodes: Unremarkable. Miscellaneous: No inguinal hernias are seen. Bones: No suspicious osseous lesion. IMPRESSION: 1. Right nephrectomy. No mass in the nephrectomy bed seen. No adenopathy. 2. Right ileocolic anastomosis. No bowel obstruction. No free fluid. 3. Hepatic steatosis. Aortic ectasia. Dictated by: Edson Mosquera M.D. on 04/16/2024 at 18:56 Approved by: Edson Mosquera M.D. on 04/16/2024 at 19:05
[2024-04-16] MEDS: hydrOXYzine HCL 25 MG TABLET PO (17:01)
[2024-04-16 17:28] LABS: Troponin I < 0.012 ng/mL (0.01-0.034)
[2024-04-16] MEDS: SODIUM CHLORIDE 0.9% 1,000 ML 1000 ML IV (18:34)
[2024-04-16 18:42] LABS: Appearance Urine UA CLEAR; Bilirubin Urine UA NEGATIVE (NEGATIVE); Color Urine UA YELLOW; Glucose Urine UA NEGATIVE (Negative); Ketones Urine UA NEGATIVE (NEGATIVE); Leukocyte Esterase Urine UA NEGATIVE (NEGATIVE); Nitrite Urine UA NEGATIVE (Negative); Occult Blood Urine UA TRACE-INTACT (Negative); Protein Urine UA TRACE (Negative); Specific Gravity Urine UA 1.015 (1.000-1.035); Urobilinogen Urine UA 0.2 E.U./dL (0.2); pH Urine UA 6.5 (4.5-8.0)
[2024-04-16 18:43] LABS: Ur Creatinine Normal (Normal); Ur Specific Gravity Normal (Normal); Urine Amphetamines Negative (Negative); Urine Cocaine Negative (Negative); Urine Opiates Negative (Negative); Urine THC Negative (Negative); Urine pH Normal (Normal)
[2024-04-16 18:44] LABS: Urine Barbiturates Negative (Negative); Urine Benzodiazepines Negative (Negative); Urine MDMA Negative (Negative); Urine Methadone Negative (Negative); Urine Methamphetamines Negative (Negative); Urine Oxycodone Negative (Negative); Urine Phencyclidine Negative (Negative); Urine Tricyclic Antidepressant Negative (Negative)
[2024-04-16 18:49] LABS: Bacteria Urine Occasional (0-1); Culture Indicated Urine Cult Not Indicated; RBC Urine 0-1/HPF (0-5/HPF); Squamous Epithelial Cell Urine 0-1 /HPF (0-5/HPF); Urine Volume 10mL (spun); WBC Urine 0-1/HPF (0-5/HPF)
== END 2024-04-16 19:36 | disposition home or self-care (01) ==
PROVIDERS: Emergency Medicine; Emergency Provider Emergency Medicine
DX: R06.02 Shortness of breath (principal); R10.9 Unspecified abdominal pain; R11.2 Nausea with vomiting, unspecified; R19.7 Diarrhea, unspecified; R79.89 Other specified abnormal findings of blood chemistry; F10.90 Alcohol use, unspecified, uncomplicated; Z79.01 Long term (current) use of anticoagulants
CPT/HCPCS: 36415; 71045; 74176; 80053; 80305; 81001; 83605; 83880; 84484; 85025; 85610; 93005; 93010; 96360; 99284; A9270